=== PATIENT | female | born 1975 | race Caucasian/White ===

== ENCOUNTER → 2019-09-08 | Outpatient (CLI) | payer OTHER | END | disposition home or self-care (01) | LOC: RAD 08:59 | PROVIDERS: ATTEND Internal Medicine Gastroenterology | DX: K85.91 Acute pancreatitis with uninfected necrosis, unspecified (principal); K57.30 Diverticulosis of large intestine without perforation or abscess without bleeding; R68.81 Early satiety; R10.13 Epigastric pain; K21.9 Gastro-esophageal reflux disease without esophagitis; R13.19 Other dysphagia; G35 Multiple sclerosis; E73.9 Lactose intolerance, unspecified; Z87.891 Personal history of nicotine dependence; F41.9 Anxiety disorder, unspecified; Z83.71 Family history of colonic polyps; Z86.010 Personal history of colon polyps | CPT/HCPCS: 78264; A9541 ==